=== PATIENT | female | born 1990 | race Caucasian/White ===

== ENCOUNTER 2016-07-08 12:05 | Emergency (ER) | payer BC ==
--- NOTE | 2016-07-08 12:29 | ER Document Report ---
ED Medical Screen (RME) - General Stated Complaint: VAGINAL BLEEDING Mode of Arrival: Ambulatory Information source: Patient Notes: Patient states that she is about 6 weeks . Patient reports vaginal bleeding that just started 45 minutes prior to arrival. Patient denies any urinary symptoms. I have greeted and performed a rapid initial assessment of this patient. A comprehensive ED assessment and evaluation of the patient, analysis of test results and completion of the medical decision making process will be conducted by additional ED providers. TRAVEL OUTSIDE OF THE [place] IN LAST 30 DAYS: No - Related Data Allergies/Adverse Reactions: No Known Allergies Allergy (Verified 07/08/16 12:28) Past Medical History - Social History Family history: Reviewed & Not Pertinent Pulmonary Medical History: Reports: Hx Asthma Psychiatric Medical History: Reports: Hx Bipolar Disorder - Immunizations Hx Diphtheria, Pertussis, Tetanus Vaccination: Yes Physical Exam - General General appearance: Appears well, Alert In distress: None Course - Re-evaluation Re-evalutation: 07/08/16 12:[address] Anand agrees with plan for ultrasound imaging.
--- NOTE | 2016-07-08 13:49 | ER Document Report ---
ED General - General Chief Complaint: Vag Bleeding, +preg <12wks Stated Complaint: VAGINAL BLEEDING Mode of Arrival: Ambulatory Information source: Patient Notes: Patient presents to the emergency department with complaints of vaginal bleeding this a.m. Patient is . She reports cough. She denies trauma. She denies other symptoms such as fever vomiting diarrhea. Denies abdominal pain, pain with void and vaginal discharge. Patient reports that she noticed some pink when she wiped earlier today. Patient has been to see her primary care provider and is taking vitamins. She is waiting for OB/ DISASTER RECOVERY CONSULTANT referral. TRAVEL OUTSIDE OF THE [place] IN LAST 30 DAYS: No - HPI Onset: This morning Onset/Duration: Sudden Quality of pain: No pain Severity: None Associated symptoms: Nonproductive cough Exacerbated by: Denies Relieved by: Denies Similar symptoms previously: No Recently seen / treated by doctor: Yes - preg confirmed - Related Data Allergies/Adverse Reactions: No Known Allergies Allergy (Verified 07/08/16 12:28) Past Medical History - General Information source: Patient Last Menstrual Period: 05/27/16 ~6 weeks - Social History Smoking Status: Former Smoker Chew tobacco use (# tins/day): No Frequency of alcohol use: None Drug Abuse: None Lives with: Family Family History: Reviewed & Not Pertinent Patient has suicidal ideation: No Patient has homicidal ideation: No Pulmonary Medical History: Reports: Hx Asthma Renal/ Medical History: Denies: Hx Peritoneal Dialysis Psychiatric Medical History: Reports: Hx Bipolar Disorder Surgical Hx: Negative - Immunizations Hx Diphtheria, Pertussis, Tetanus Vaccination: Yes Review of Systems - Review of Systems Notes: Review HPI for review of systems., All other systems negative Physical Exam - Vital signs Vitals: Temp Pulse Resp BP Pulse Ox 98.2 F 88 16 128/72 H 98 07/08/16 12:27 07/08/16 12:27 07/08/16 12:27 07/08/16 12:27 07/08/16 12:27 - Notes Notes: PHYSICAL EXAMINATION: GENERAL: Well-appearing and in no acute distress HEAD: Atraumatic, normocephalic. EYES: Pupils equal round extraocular movements intact, sclera anicteric, conjunctiva are normal. ENT: nares patent, . Moist mucous membranes. NECK: Normal range of motion, supple without lymphadenopathy LUNGS: CTAB and equal. No wheezes rales or rhonchi. HEART: Regular rate and rhythm without murmurs ABDOMEN: Soft, no tenderness. No guarding, no rebound BACK: Denies pain EXTREMITIES: Normal range of motion, no pitting edema. No cyanosis. NEUROLOGICAL: Cranial nerves grossly intact. Normal sensory/motor exams. PSYCH: Normal mood, normal affect. SKIN: Warm, Dry, normal turgor, no rashes or lesions noted Course - Re-evaluation Re-evalutation: 07/08/16 patient instructed on all results. Instructed on follow-up hCG level. She verbalized understanding to all - Vital Signs Vital signs: Temp Pulse Resp BP Pulse Ox 98.2 F 88 16 128/72 H 98 07/08/16 12:27 07/08/16 12:27 07/08/16 12:27 07/08/16 12:27 07/08/16 12:27 - Laboratory Result Diagrams: 07/08/16 13:56 07/08/16 13:56 Laboratory results interpreted by me: 07/08/16 07/08/16 13:56 13:56 WBC 11.5 H Glucose 66 L Beta HCG, Quant 78222.00 H - Diagnostic Test Radiology reviewed: Image reviewed, Reports reviewed - 5w IUP Discharge - Discharge Clinical Impression: elevated blood pressure reading Vaginal bleeding in Qualifiers: Trimester: first trimester Qualified Code(s): O46.91 - Antepartum hemorrhage, unspecified, first trimester Condition: Stable Disposition: HOME, SELF-CARE Instructions: Bleeding During Early ([facility]), ([facility]), Ob-[facility] Doctors Additional Instructions: *You have been evaluated for vaginal bleeding, *Your ultrasound showed a 5week 6 day intrauterine . Your HCG level was *Follow up on July 10 for a repeat hCG. Contact the culture nurse at [phone] for results at least two hours after the lab test. *Follow up with your CAR SALES CONSULTANT or the health department for recheck within one week *Avoid sexual intercourse until follow up *Return to ED for worsening condition, changes, needs Forms: Elevated Blood Pressure, Follow-Up Laboratory Testing
[2016-07-08 14:11] LABS: ABSOLUTE EOSINOPHILS # (AUTO) 0.2 10^3/uL (0.0-0.6); ABSOLUTE LYMPHOCYTES (AUTO) 2.5 10^3/uL (0.5-4.7); ABSOLUTE MONOCYTES (AUTO) 0.9 10^3/uL (0.1-1.4); ABSOLUTE NEUT (AUTO) 7.8 10^3/uL (1.7-8.2); BASOPHILS % (AUTO) 0.4 % (0-2); HEMATOCRIT 40.9 % (36.0-47.0); HEMOGLOBIN 14.2 g/dL (12.0-15.5); HGB HCT DIFFERENCE 1.7; LYMPHOCYTES % (AUTO) 21.7 % (13-45); MEAN CORPUSCULAR HEMOGLOBIN 31.1 pg (27.0-33.4); MEAN CORPUSCULAR HGB CONC 34.7 g/dL (32.0-36.0); MEAN CORPUSCULAR VOLUME 90 fl (80-97); MONOCYTES % (AUTO) 8.2 % (3-13); RED BLOOD COUNT 4.56 10^6/uL (3.72-5.28); RED CELL DISTRIBUTION WIDTH 12.9 % (11.5-14.0); SEGMENTED NEUTROPHILS % (AUTO) 67.7 % (42-78); WHITE BLOOD COUNT 11.5 10^3/uL (4.0-10.5)
[2016-07-08 14:27] LABS: ALANINE AMINOTRANSFERASE 21 U/L (9-52); ALBUMIN 4.4 g/dL (3.5-5.0); ALKALINE PHOSPHATASE 63 U/L (38-126); ANION GAP 10 (5-19); ASPARTATE AMINO TRANSFERASE 14 U/L (14-36); BILIRUBIN,TOTAL 0.3 mg/dL (0.2-1.3); BLOOD UREA NITROGEN 11 mg/dL (7-20); CARBON DIOXIDE 28 mmol/L (22-30); CHLORIDE 101 mmol/L (98-107); CREATININE RESULT 0.59 mg/dL (0.52-1.25); GLUCOSE 66 mg/dL (75-110); SODIUM 139.3 mmol/L (137-145); TOTAL PROTEIN 6.7 g/dL (6.3-8.2)
[2016-07-08 15:52] VITALS: BP 118/62
== END 2016-07-08 15:32 | disposition home or self-care (01) ==
LOC: ER 12:05
DX: O46.91 Antepartum hemorrhage, unspecified, first trimester (principal); R03.0 Elevated blood-pressure reading, without diagnosis of hypertension; Z3A.01 Less than 8 weeks gestation of pregnancy
CPT/HCPCS: 36415; 76817; 80053; 84702; 85025; 86900; 86901; 99284

== ENCOUNTER 2017-01-23 10:56 | Outpatient (CLI) | payer MEDICAID ==
--- NOTE | 2017-01-23 11:28 | Non Stress Test Report ---
Non Stress Test Datetime Report Generated by CPN: 01/23/2017 11:27 DEMOGRAPHIC EGA NST: 34.3 INDICATION Indication for Study: Polyhydramnios; Ordered by Provider VITAL SIGNS Temperature - NST: 98.2 Pulse - NST: 99 RESP - NST: 16 NBPSYS NST: 129 NBPDIA NST: 73 MONITORING Monitor Explained: Monitor Explained; Test Explained; Patient Verbalized Understanding Time on Monitor: 01/23/2017 11:08 Time off Monitor: 01/23/2017 11:28 NST Duration: 20 NST INTERVENTIONS NST Interventions: PO Hydration; Reposition Patient Physician Notified NST: DR NEILSEN REVIEWED STRIP BABY A: [id number] BABY A Movement : Present Contraction Frequency : x0 FHR Baseline : 135 Accelerations : 15X15 Decelerations : None Variability : Moderate 6-25bpm NST Review: Meets Criteria for Reactive NST NST Review and Verified By : BL ROULUND, RN NST Results: Reactive NST COMMENTS NST Comments: KICK COUNTS CARE NOTES GIVEN TO PT. NST REPORT Report Trigger: Send Report
== END 2017-01-23 11:40 | disposition home or self-care (01) ==
LOC: LC 10:56
PROVIDERS: ATTEND Specialist
PROC: 4A1HXCZ Monitoring of Products of Conception, Cardiac Rate, External Approach (ICD-10-PCS; principal; 2017-01-23)
DX: O40.3XX0 Polyhydramnios, third trimester, not applicable or unspecified (principal); Z3A.34 34 weeks gestation of pregnancy
CPT/HCPCS: 59025

== ENCOUNTER 2017-01-28 09:16 | Outpatient (CLI) | payer MEDICAID ==
--- NOTE | 2017-01-28 10:08 | Non Stress Test Report ---
Non Stress Test Datetime Report Generated by CPN: 01/28/2017 10:08 DEMOGRAPHIC EGA NST: 35.1 EGA NST: 35.1 INDICATION Indication for Study: Polyhydramnios Indication for Study: Ordered by Provider VITAL SIGNS Temperature - NST: 97.5 Pulse - NST: 81 RESP - NST: 16 NBPSYS NST: 120 NBPDIA NST: 69 MONITORING Monitor Explained: Monitor Explained; Test Explained; Patient Verbalized Understanding Monitor Explained: Monitor Explained; Test Explained; Patient Verbalized Understanding Time on Monitor: 01/28/2017 09:27 Time on Monitor: 01/28/2017 11:09 Time off Monitor: 01/28/2017 10:05 NST Duration: 38 NST INTERVENTIONS NST Interventions: PO Hydration; Reposition Patient NST Interventions: PO Hydration; Reposition Patient Physician Notified NST: H Kedar CNM BABY A: [id number] BABY A Movement : Present Contraction Frequency : x2 FHR Baseline : 125 Accelerations : 15X15 Decelerations : None Variability : Moderate 6-25bpm NST Review: Meets Criteria for Reactive NST NST Review and Verified By : D Bellavance RNC NST Results: Reactive NST REPORT Report Trigger: Send Report
== END 2017-01-28 10:05 | disposition home or self-care (01) ==
LOC: LC 09:16
PROVIDERS: ATTEND Obstetrics & Gynecology
PROC: 4A1HXCZ Monitoring of Products of Conception, Cardiac Rate, External Approach (ICD-10-PCS; principal; 2017-01-28)
DX: O40.3XX0 Polyhydramnios, third trimester, not applicable or unspecified (principal); Z3A.35 35 weeks gestation of pregnancy
CPT/HCPCS: 59025

== ENCOUNTER 2017-02-04 02:14 | Outpatient (CLI) | payer MEDICAID ==
[2017-02-04] MEDS ORDERED: BUPIVACAINE HCL 0.25 % INJ/PF (2.5 MG/1 ML) 30 ML VIAL INFIL ONE (02:26)
[2017-02-04] MEDS ORDERED: RINGERS SOLUTION,LACTATED 1,000 ML IV PRN (02:26)
[2017-02-04] MEDS ORDERED: FENTANYL/BUPIVACAINE/NS/PF 200 MCG/100 ML RTUINJ EPI PRN (02:26)
[2017-02-04] MEDS ORDERED: BENZOIN/ALOE VERA/STORAX/TOLU TINCTURE 60 ML TP PRN (02:26)
[2017-02-04] MEDS ORDERED: MORPHINE SULFATE 10 MG/ML INJ ONE (02:43)
[2017-02-04 03:01] LABS: AMORPHOUS SEDIMENT,URINE TRACE /HPF; APPEARANCE,URINE CLOUDY; BILIRUBIN,URINE NEGATIVE (NEGATIVE); GLUCOSE, URINE NEGATIVE (NEGATIVE); KETONES,URINE 20 mg/dL (NEGATIVE); LEUKOCYTE ESTERASE,URINE LARGE (NEGATIVE); NITRITE,URINE NEGATIVE (NEGATIVE); PROTEIN,URINE 30 mg/dL (NEGATIVE); URINE SPECIFIC GRAVITY 1.006; UROBILINOGEN,URINE NEGATIVE mg/dL (<2.0)
[2017-02-04 03:36] LABS: URINE BARBITURATES SCREEN NEGATIVE; URINE METHADONE SCREEN NEGATIVE; URINE OPIATES LOW NEGATIVE; URINE PHENCYCLIDINE SCREEN NEGATIVE
[2017-02-04] MEDS ORDERED: HYDROXYZINE PAMOATE 50 MG CAPSULE ONE (04:03)
[2017-02-05] MEDS ORDERED: MORPHINE SULFATE 10 MG/ML INJ ONE (12:32)
[2017-02-05] MEDS ORDERED: PROMETHAZINE HCL INJ 25 MG/1 ML VIAL ONE (12:32)
[2017-02-05] MEDS ORDERED: AMPICILLIN SOD/SULBACTAM 3 GM VIAL ONE (23:45)
== END 2017-02-04 04:14 | disposition home or self-care (01) ==
LOC: LC 02:14
PROVIDERS: ATTEND Obstetrics & Gynecology
PROC: 4A1HXCZ Monitoring of Products of Conception, Cardiac Rate, External Approach (ICD-10-PCS; principal; 2017-02-04)
DX: O26.53 Maternal hypotension syndrome, third trimester (principal); Z3A.36 36 weeks gestation of pregnancy
CPT/HCPCS: 59025; 81001; 80307; J3490; J2270

== ENCOUNTER 2017-02-04 10:35 | Outpatient (CLI) | payer MEDICAID ==
--- NOTE | 2017-02-04 10:48 | Non Stress Test Report ---
Non Stress Test Datetime Report Generated by CPN: 02/04/2017 10:48 DEMOGRAPHIC Test Number: 4 EGA NST: 36.1 INDICATION Indication for Study (NST) Other: Labor Check MONITORING Monitor Explained: Monitor Explained; Test Explained; Patient Verbalized Understanding Time on Monitor: 02/04/2017 02:20 Time off Monitor: 02/04/2017 04:00 NST Duration: 100 NST INTERVENTIONS NST Interventions: PO Hydration; Reposition Patient; Vibroacoustic Stim Physician Notified NST: Dr Oconnor BABY A: [id number] BABY A Movement : Present Contraction Frequency : irritability FHR Baseline : 145 Accelerations : 10X10 Decelerations : None Variability : Moderate 6-25bpm NST Review: Does Not Meet Criteria for Reactive NST NST Review: Does Not Meet Criteria for Reactive NST NST Review and Verified By : Rigo David RN NST Results: Non-Reactive NST Results: Non-Reactive NST COMMENTS NST Comments: Dr. Oconnor reviewed tracing. States that because pt had reactive NST on 9/3, he is okay with pt being discharged at this time. NST REPORT Report Trigger: Send Report
[2017-02-04] MEDS ORDERED: RINGERS SOLUTION,LACTATED 1,000 ML IV PRN (10:50)
[2017-02-04 11:10] LABS: APPEARANCE,URINE CLEAR; BILIRUBIN,URINE NEGATIVE (NEGATIVE); GLUCOSE, URINE NEGATIVE (NEGATIVE); KETONES,URINE 20 mg/dL (NEGATIVE); LEUKOCYTE ESTERASE,URINE MODERATE (NEGATIVE); NITRITE,URINE NEGATIVE (NEGATIVE); PROTEIN,URINE NEGATIVE (NEGATIVE); URINE SPECIFIC GRAVITY 1.005; UROBILINOGEN,URINE NEGATIVE mg/dL (<2.0)
[2017-02-04 11:22] LABS: URINE BARBITURATES SCREEN NEGATIVE; URINE METHADONE SCREEN NEGATIVE; URINE OPIATES LOW NEGATIVE; URINE PHENCYCLIDINE SCREEN NEGATIVE
--- NOTE | 2017-02-04 12:42 | RADIOLOGY REPORT (SQ) ---
EXAM DESCRIPTION: U/S PROFILE W/O STRESS COMPLETED DATE/TIME: 02/04/2017 12:29 pm REASON FOR STUDY: Non-reactive NST at 36.1 weeks EGA COMPARISON: None. TECHNIQUE: Limited dover-scale realtime and static images of the fetus to measure specified parameter s. LIMITATIONS: Exam terminated early per request of patient. FINDINGS: HEART RATE: 144 beats per minute. NEEMA: 14.2 cm. POSTURE AND TONE: 2 points. MOVEMENT: 2 points. BREATHING MOVEMENT: 0 points. QUALITATIVE NEEMA: 2 points. OTHER: No other significant finding. IMPRESSION: BIOPHYSICAL PROFILE: 11/08. Trimester of : Third - 28 weeks to delivery COMMENT: BREATHING MOVEMENTS: 2 POINTS: PRESENT 0 POINTS: ABSENT MOTION: 2 POINTS: PRESENT 0 POINTS: ABSENT TONE: 2 POINTS: PRESENT 0 POINTS: ABSENT AMNIOTIC FLUID VOLUME: 2 POINTS: LARGEST POCKET GREATER THAN 2 CM DEPTH. 0 POINTS: NO POCKET OF 2 CM. TECHNICAL DOCUMENTATION: JOB ID: [id number] [employer]- All Rights Reserved
[2017-02-04] MEDS ORDERED: HYDROXYZINE PAMOATE 50 MG CAPSULE PO ONE (13:17)
[2017-02-04] MEDS ORDERED: HYDROXYZINE PAMOATE 50 MG CAPSULE ONE (13:42)
--- NOTE | 2017-02-04 14:19 | Non Stress Test Report ---
Non Stress Test Datetime Report Generated by CPN: 02/04/2017 14:18 DEMOGRAPHIC EGA NST: 36.1 INDICATION Indication for Study: Other Indication for Study (NST) Other: False Labor MONITORING Monitor Explained: Monitor Explained; Test Explained; Patient Verbalized Understanding Time on Monitor: 02/04/2017 12:30 Time off Monitor: 02/04/2017 13:33 NST Duration: 63 NST INTERVENTIONS NST Interventions: PO Hydration; IV Fluids; Reposition Patient; For Biophysical Profile Physician Notified NST: Burt Rivero Strip reviewed by provider BABY A Movement : Present Contraction Frequency : Irregular FHR Baseline : 145 Accelerations : 15X15 Decelerations : None Variability : Moderate 6-25bpm NST Review: Meets Criteria for Reactive NST NST Review and Verified By : SRIKANTH LOZA Results: Reactive NST COMMENTS NST Comments: BPP 6/8 NST REPORT Report Trigger: Send Report
== END 2017-02-04 13:57 | disposition home or self-care (01) ==
LOC: LC 10:35
PROVIDERS: ATTEND Student in an Organized Health Care Education/Training Program
DX: O47.03 False labor before 37 completed weeks of gestation, third trimester (principal); Z3A.36 36 weeks gestation of pregnancy
CPT/HCPCS: 59025; 81001; 80307; 76819; J3490; J2270

== ENCOUNTER 2017-02-05 09:10 | Inpatient (IN) | payer MEDICAID ==
[2017-02-05 10:09] LABS: APPEARANCE,URINE CLEAR; BILIRUBIN,URINE NEGATIVE (NEGATIVE); GLUCOSE, URINE NEGATIVE (NEGATIVE); KETONES,URINE 20 mg/dL (NEGATIVE); LEUKOCYTE ESTERASE,URINE TRACE (NEGATIVE); NITRITE,URINE NEGATIVE (NEGATIVE); PROTEIN,URINE NEGATIVE (NEGATIVE); URINE SPECIFIC GRAVITY 1.004
[2017-02-05 10:25] LABS: URINE BARBITURATES SCREEN NEGATIVE; URINE METHADONE SCREEN NEGATIVE; URINE OPIATES LOW NEGATIVE; URINE PHENCYCLIDINE SCREEN NEGATIVE
[2017-02-05] MEDS ORDERED: HYDROXYZINE PAMOATE 50 MG CAPSULE PO ONE (11:01)
[2017-02-05] MEDS ORDERED: DEXTROSE 5%-LACTATED RINGERS 1,000 ML IV PRN (11:01)
[2017-02-05] MEDS ORDERED: HYDROXYZINE PAMOATE 50 MG CAPSULE ONE (11:08)
--- NOTE | 2017-02-05 12:14 | Non Stress Test Report ---
Non Stress Test Datetime Report Generated by CPN: 02/05/2017 12:14 DEMOGRAPHIC EGA NST: 36.2 INDICATION Indication for Study: Polyhydramnios; Ordered by Provider VITAL SIGNS Temperature - NST: 97.4 MONITORING Monitor Explained: Monitor Explained; Test Explained; Patient Verbalized Understanding Time on Monitor: 02/05/2017 11:50 Time off Monitor: 02/05/2017 12:10 NST Duration: 20 NST INTERVENTIONS NST Interventions: PO Hydration BABY A: [id number] BABY A Movement : Present Contraction Frequency : Irregular FHR Baseline : 135 Accelerations : 15X15 Decelerations : None Variability : Moderate 6-25bpm NST Review: Meets Criteria for Reactive NST NST Review and Verified By : Anais Cordero NST Results: Reactive NST REPORT Report Trigger: Send Report
[2017-02-05] MEDS ORDERED: MORPHINE SULFATE 10 MG/ML INJ IM ONE (12:22)
[2017-02-05] MEDS ORDERED: PROMETHAZINE HCL INJ 25 MG/1 ML VIAL IM PRN (12:23)
[2017-02-05] MEDS ORDERED: PROMETHAZINE HCL INJ 25 MG/1 ML VIAL ONE (12:38)
[2017-02-05] MEDS ORDERED: MORPHINE SULFATE 10 MG/ML INJ ONE (12:39)
[2017-02-05] MEDS ORDERED: PROMETHAZINE HCL INJ 25 MG/1 ML VIAL IV ONE (12:45)
--- NOTE | 2017-02-05 14:13 | RADIOLOGY REPORT (SQ) ---
EXAM DESCRIPTION: U/S OB LIMITED COMPLETED DATE/TIME: 02/05/2017 2:00 pm REASON FOR STUDY: iup 36+3 vaginal leaking, NEEMA please COMPARISON: 02/04/2017 TECHNIQUE: Limited transabdominal grayscale ultrasound for evaluation of specific requested obstetri vicki parameters. LIMITATIONS: None. FINDINGS: NEEMA: 14.6 cm. FHR: 160 beats per minute. PRESENTATION: Cephalic. OTHER: No other significant findings. IMPRESSION: LIMITED OBSTETRICAL ULTRASOUND WITH MEASURED PARAMETERS DELINEATED ABOVE. Trimester of : Third trimester - 28 weeks to delivery. TECHNICAL DOCUMENTATION: JOB ID: [id number] [employer]- All Rights Reserved
[2017-02-05] MEDS ORDERED: MISOPROSTOL 0.2 MG TABLET ONE (14:52)
[2017-02-05] MEDS ORDERED: LIDOCAINE 1% INJ-PF (10 MG/ML) 30 ML SDV ONE (14:52)
[2017-02-05] MEDS ORDERED: OXYTOCIN/NORMAL SALINE 20 UNIT/1,000 ML RTUINJ ONE (14:52)
[2017-02-05] MEDS ORDERED: PENICILLIN G-K 5 MILLION UNIT VIAL ONE ×2 (14:54→18:03)
[2017-02-05] MEDS ORDERED: PENICILLIN G POTASSIUM 5,000,000 UNIT in DEXTROSE 5%-WATER 100 ML IV ONE (14:57)
[2017-02-05 15:01] LABS: ABSOLUTE BASOPHILS # (AUTO) 0.1 10^3/uL (0.0-0.2); ABSOLUTE LYMPHOCYTES (AUTO) 1.5 10^3/uL (0.5-4.7); ABSOLUTE MONOCYTES (AUTO) 1.5 10^3/uL (0.1-1.4); ABSOLUTE NEUT (AUTO) 16.8 10^3/uL (1.7-8.2); BASOPHILS % (AUTO) 0.4 % (0-2); EOSINOPHILS % (AUTO) 0.1 % (0-6); HEMATOCRIT 35.2 % (36.0-47.0); HEMOGLOBIN 12.4 g/dL (12.0-15.5); LYMPHOCYTES % (AUTO) 7.3 % (13-45); MEAN CORPUSCULAR HEMOGLOBIN 31.5 pg (27.0-33.4); MEAN CORPUSCULAR HGB CONC 35.1 g/dL (32.0-36.0); MEAN CORPUSCULAR VOLUME 90 fl (80-97); MONOCYTES % (AUTO) 7.7 % (3-13); RED BLOOD COUNT 3.93 10^6/uL (3.72-5.28); RED CELL DISTRIBUTION WIDTH 13.6 % (11.5-14.0); SEGMENTED NEUTROPHILS % (AUTO) 84.5 % (42-78); WHITE BLOOD COUNT 19.9 10^3/uL (4.0-10.5)
[2017-02-05 15:16] LABS: ALANINE AMINOTRANSFERASE 28 U/L (9-52); ALBUMIN 3.5 g/dL (3.5-5.0); ALKALINE PHOSPHATASE 155 U/L (38-126); ANION GAP 11 (5-19); ASPARTATE AMINO TRANSFERASE 17 U/L (14-36); BILIRUBIN,DIRECT 0.5 mg/dL (0.0-0.4); BILIRUBIN,TOTAL 0.8 mg/dL (0.2-1.3); BLOOD UREA NITROGEN 3 mg/dL (7-20); CALCIUM 9.3 mg/dL (8.4-10.2); CARBON DIOXIDE 21 mmol/L (22-30); CHLORIDE 101 mmol/L (98-107); GLUCOSE 83 mg/dL (75-110); LDH 306 U/L (313-618); POTASSIUM 3.6 mmol/L (3.6-5.0); TOTAL PROTEIN 6.4 g/dL (6.3-8.2); URIC ACID 6.5 mg/dL (2.5-6.2)
[2017-02-05] MEDS: RINGERS SOLUTION,LACTATED 1,000 ML IV PRN ×3 (15:42→23:53)
[2017-02-05] MEDS ORDERED: FENTANYL/BUPIVACAINE/NS/PF 200 MCG/100 ML RTUINJ EPI ONE ×2 (17:48→18:49)
[2017-02-05] MEDS ORDERED: EPHEDRINE SULFATE INJ 50 MG/1 ML AMPULE ONE (17:48)
[2017-02-05] MEDS ORDERED: BUPIVACAINE HCL 0.25 % INJ/PF (2.5 MG/1 ML) 30 ML VIAL ONE (17:49)
[2017-02-05] MEDS: PENICILLIN G-K 5 MILLION UNIT VIAL IV SCH ×2 (18:51→23:40)
[2017-02-05] MEDS ORDERED: PENICILLIN G POTASSIUM 2,500,000 UNIT in DEXTROSE 5%-WATER 50 ML IV SCH (18:59)
[2017-02-05] MEDS ORDERED: ZOLPIDEM TARTRATE 5 MG TABLET PO PRN (23:09)
[2017-02-05] MEDS ORDERED: BENZOCAINE/MENTHOL AEROSOL SPRAY 56 ML TOP PRN (23:09)
[2017-02-05] MEDS ORDERED: MEASLES,MUMPS&RUBELLA VACC/PF 0.5 ML VIAL SUBCUT PRN (23:09)
[2017-02-05] MEDS ORDERED: ACETAMINOPHEN WITH CODEINE #3 TABLET PO PRN (23:09)
[2017-02-05] MEDS ORDERED: OXYTOCIN/NORMAL SALINE 20 UNIT/1,000 ML RTUINJ IV PRN (23:09)
[2017-02-05] MEDS ORDERED: DIPH/PERTUSS(ACELL)/TETANUS VAC/PF 0.5 ML SYR (>=10YO) IM PRN (23:09)
[2017-02-05] MEDS ORDERED: DIBUCAINE 1% OINTMENT 28 GM TP PRN (23:09)
[2017-02-05] MEDS ORDERED: AMPICILLIN SOD/SULBACTAM 3 GM VIAL IV SCH (23:15)
[2017-02-05] MEDS ORDERED: AMPICILLIN SODIUM/SULBACTAM NA 3 GM in NORMAL SALINE 100 ML IV SCH (23:45)
[2017-02-05] MEDS: AMPICILLIN SOD/SULBACTAM 3 GM VIAL IV PRN (23:54)
--- NOTE | 2017-02-06 00:33 | Delivery Summary ---
Del Sum A-C Datetime Report Generated by CPN: 02/06/2017 00:32 DELIVERY PERSONNEL DELIVERY PERSONNEL: [id number] Delivery Doctor:: Maricel Acharya MD Labor and Delivery Nurse:: Denise Thomas RNdirector community center Nurse:: Sheron David RN Case Work Aide:: Cathy Franco RN Industrial Hire Sales Assistant/SYSTEMS SOFTWARE DEVELOPER: Tatianna Green, ST MATERNAL INFORMATION Delivery Anesthesia: Epidural Medications After Delivery: Pitocin Drip 20 Units/1000ml NSS; Other-Please Comment Meds After Delivery Comment: Cytotec 1000 mcg SD Estimated Blood Loss (ml): 200 Maternal Complications: None; Premature Rupture of Membranes LABOR SUMMARY EDC: 03/03/2017 00:00 No. Babies in Womb: 1 Attempted: No Labor Anesthesia: Epidural LABOR INFORMATION Reason for Induction: Premature Rupture of Membranes Onset of Labor: 02/05/2017 18:40 Complete Dilatation: 02/05/2017 21:41 Oxytocin: Induction Group B Beta Strep: Unknown Antibiotics # of Doses: 2 Antibiotics Time of Last Dose: 1851 Name of Antibiotic Given: Penicillin Steroids Given: None Reason Steroids Not Administered: Not Applicable MEMBRANES Membranes Rupture Method: Spontaneous Rupture of Membranes: 02/02/2017 19:30 Length of Rupture (hr): 75.40 Amniotic Fluid Color: Clear Amniotic Fluid Amount: Copious Amniotic Fluid Odor: None STAGES OF LABOR Stage 1 hr: 3 Stage 1 min: 1 Stage 2 hr: 1 Stage 2 min: 13 Stage 3 hr: 1 Stage 3 min: 5 Total Time in Labor hr: 5 Total Time in Labor min: 19 VAGINAL DELIVERY Episiotomy: None Laceration Extension: N/A Laceration Type: None Laceration Repair: Not Applicable Sponge Count Correct: N/A Sharps Count Correct: N/A CSECTION DELIVERY Primary Indication: N/A Secondary Indication: N/A CSection Incidence: N/A Labor: N/A Elective: N/A CSection Incision: N/A BABY A INFORMATION Delivery Date/Time: 02/05/2017 22:54 Method of Delivery: Vaginal Born in Route : No : N/A Forceps: N/A Vacuum Extraction: N/A Shoulder Dystocia : No PRESENTATION/POSITION BABY A Presentation: Cephalic Cephalic Presentation: Vertex Vertex Position: Right Occipital Anterior Breech Presentation: N/A PLACENTA INFORMATION BABY A Placenta Delivery Time : 02/05/2017 23:59 Placenta Method of Delivery: Spontaneous Placenta Status: Delivered SCORES BABY A Heart Rate 1 min: >100 bpm Resp Effort 1 min: Slow, Irregular Reflex Irritability 1 min: Grimace Muscle Tone 1 min: Flaccid Color 1 min: Body [place], Extremities Blue Resuscitation Effort 1 min: Tactile Stimulation SCORE 1 MIN: 5 Heart Rate 5 min: >100 bpm Resp Effort 5 min: Slow, Irregular Reflex Irritability 5 min: Grimace Muscle Tone 5 min: Some Flexion of Extremities Color 5 min: Body [place], Extremities Blue Resuscitation Effort 5 min: Tactile Stimulation; Oxygen; PPV/NCPAP SCORE 5 MIN: 6 Heart Rate 10 min: >100 bpm Resp Effort 10 min: Slow, Irregular Reflex Irritability 10 min: Cough or Sneeze or Pulls Away Muscle Tone 10 min: Active Motion Color 10 min: Body [place], Extremities Blue SCORE 10 MIN: 8 INFORMATION BABY A Gestational Age at Delivery: 36.2 Gestational Status: Late - 34- 36.6 Weeks Infant Outcome : Liveborn Infant Condition : Stable Infant Sex: Female IDENTIFICATION BABY A Infant Verification Date/Time: 02/05/2017 22:59 ID Band Number: [id number] Mother's Name Verified: Yes RN Verifying : R [place], C Additional Verifying Personnel: [facility], RN WEIGHT/LENGTH BABY A Birthweight (gm): 2980 Weight (lb): 6 Weight (oz): 9 Length (in): 19.50 Length (cm): 49.53 CORD INFORMATION BABY A No. Cord Vessels: 3 Nuchal Cord : N/A Cord Blood Taken: Yes-For Eval (Mom's Blood Type - or O+) Infant Suction: Mouth; Nose; Pharynx ASSESSMENT BABY A Infant Complications: Meconium; Other Infant Complications- Other: Terminal mec Physical Findings at Delivery: Molding of the Head Infant Respirations: Intercostal Retractions; Sternal Retractions; Tachypnea Skin to Skin: No Product Safety Tester/ALS Called : No Care By: SRIKANTH Herrera RN Transferred To: [facility] BABY B INFORMATION : N/A SIGNATURES Signature: with User ID: [email or web address]
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
[2017-02-06] MEDS ORDERED: ACETAMINOPHEN 325 MG TABLET PO PRN (02:47)
[2017-02-06 05:58] LABS: CHLAM PCR NOT DETECTED (NOT DETECT)
[2017-02-06] MEDS: AMPICILLIN SOD/SULBACTAM 3 GM VIAL IV PRN (06:10)
[2017-02-06] MEDS: IBUPROFEN 800 MG TABLET PO SCH ×3 (06:12→21:10)
[2017-02-06 07:06] LABS: HEMATOCRIT 30.2 % (36.0-47.0); HEMOGLOBIN 10.4 g/dL (12.0-15.5); MEAN CORPUSCULAR HEMOGLOBIN 31.2 pg (27.0-33.4); MEAN CORPUSCULAR HGB CONC 34.5 g/dL (32.0-36.0); MEAN CORPUSCULAR VOLUME 90 fl (80-97); RED BLOOD COUNT 3.34 10^6/uL (3.72-5.28); RED CELL DISTRIBUTION WIDTH 13.3 % (11.5-14.0); WHITE BLOOD COUNT 18.8 10^3/uL (4.0-10.5)
[2017-02-06] MEDS: DOCUSATE SODIUM 100 MG CAPSULE PO SCH ×2 (09:07→18:46)
[2017-02-06] MEDS: FERROUS SULFATE 325 MG TABLET PO SCH ×2 (09:07→18:46)
[2017-02-06] MEDS: SENNOSIDES/DOCUSATE 8.6-50 MG 1 EACH TABLET PO SCH (09:07)
[2017-02-06] MEDS: PRENATAL VITAMIN W-O CA NO5/FE FUMARATE/FA CAPSULE PO SCH (09:07)
[2017-02-06 09:43] LABS: AMNISURE (ROM) NEGATIVE (NEGATIVE)
--- NOTE | 2017-02-06 10:52 | PDOC PROGRESS REPORT ---
Subjective-OB Subjective: Post Delivery Day: 26 year old. Denies any needs at this time PROM at 36.2 wega chorio- on abx heplock in place/ no redness or tenderness noted pt well reports increased vaginal bleeding fundus firm normal bleeding precautions reviewed anticipate d/c tomorrow Physical Exam (OB) Vital Signs: Temp Pulse Resp BP Pulse Ox 98.1 F 100 18 135/89 H 99 02/06/17 08:17 02/06/17 08:17 02/06/17 08:17 02/06/17 08:17 02/06/17 08:17 Intake & Output 02/05/17 02/06/17 02/07/17 06:59 06:59 06:59 Intake Total 400 Balance 400 Weight 88.2 kg - Lochia Lochia Amount: Scant < 10 ml Lochia Color: Rubra/Red - Abdomen Description: Tender, Soft Hernia Present: No Fundal Description: Firm, Midline Fundal Height: u/u - u/2 Objective-Diagnostic Laboratory: 02/06/17 06:51 02/05/17 14:44 02/05/17 02/05/17 02/05/17 14:44 14:44 14:44 WBC 19.9 H RBC 3.93 Hgb 12.4 Hct 35.2 L MCV 90 MCH 31.5 MCHC 35.1 RDW 13.6 Plt Count 281 Seg Neutrophils % 84.5 H Lymphocytes % 7.3 L Monocytes % 7.7 Eosinophils % 0.1 Basophils % 0.4 Absolute Neutrophils 16.8 H Absolute Lymphocytes 1.5 Absolute Monocytes 1.5 H Absolute Eosinophils 0.0 Absolute Basophils 0.1 Sodium 133.0 L Potassium 3.6 Chloride 101 Carbon Dioxide 21 L Anion Gap 11 BUN 3 L Creatinine 0.50 L Est GFR ( Amer) > 60 Est GFR (Non-Af Amer) > 60 Glucose 83 Uric Acid 6.5 H Calcium 9.3 Total Bilirubin 0.8 AST 17 ALT 28 Alkaline Phosphatase 155 H Total Protein 6.4 Albumin 3.5 Blood Type O POSITIVE Antibody Screen NEGATIVE 02/06/17 06:51 WBC 18.8 H RBC 3.34 L Hgb 10.4 L Hct 30.2 L MCV 90 MCH 31.2 MCHC 34.5 RDW 13.3 Plt Count 258 Seg Neutrophils % Lymphocytes % Monocytes % Eosinophils % Basophils % Absolute Neutrophils Absolute Lymphocytes Absolute Monocytes Absolute Eosinophils Absolute Basophils Sodium Potassium Chloride Carbon Dioxide Anion Gap BUN Creatinine Est GFR ( Amer) Est GFR (Non-Af Amer) Glucose Uric Acid Calcium Total Bilirubin AST ALT Alkaline Phosphatase Total Protein Albumin Blood Type Antibody Screen
[2017-02-06] MEDS: ACETAMINOPHEN WITH CODEINE #3 TABLET PO PRN ×2 (11:13→16:34)
[2017-02-06] MEDS ORDERED: AMPICILLIN SODIUM/SULBACTAM NA 3 GM in NORMAL SALINE 100 ML IV ONE (15:00)
[2017-02-07] MEDS: IBUPROFEN 800 MG TABLET PO SCH ×2 (05:18→13:32)
[2017-02-07] MEDS: ACETAMINOPHEN WITH CODEINE #3 TABLET PO PRN ×3 (05:56→17:51)
[2017-02-07 08:30] VITALS: BP 124/69
--- NOTE | 2017-02-07 09:24 | PDOC DISCHARGE SUMMARY ---
Final Diagnosis Discharge Date: 02/07/17 - Final Diagnosis (1) PROM (premature rupture of membranes) Is this a current diagnosis for this admission?: Yes (2) History of depression Is this a current diagnosis for this admission?: Yes (3) (spontaneous vaginal delivery) Is this a current diagnosis for this admission?: Yes Discharge Data - Discharge Medication Home Medications: Pnv95/Ferrous Fumarate/FA [ Formula Tablet] 1 tab PO DAILY 01/23/17 Calcium Carbonate [Tums Chewable 500 mg Tab.chew] 500 mg PO MEALSHS 02/04/17 Docusate Sodium [Colace 100 mg Capsule] 100 mg PO BID #30 capsule 02/07/17 Ferrous Sulfate [Feosol 325 mg Tablet] 325 mg PO BID #30 tablet 02/07/17 Ibuprofen [Motrin 800 mg Tablet] 800 mg PO Q8 #30 tablet 02/07/17 Gestational Age: 36.2 Reason(s) for Admission: Onset of Labor Procedures: NST Intrapartum Procedure(s): Spontaneous Vaginal Delivery - Data Baby 1 Female at 1 minute: 5 at 5 minutes: 6 at 10 minutes: 8 Weight: 2980 kg Home with Mother: Yes Complications: No - Diagnosis Test Laboratory: Temp Pulse Resp BP Pulse Ox 97.9 F 71 16 124/69 100 02/07/17 07:29 02/07/17 07:29 02/07/17 07:29 02/07/17 07:29 02/07/17 07:29 02/05/17 02/05/17 02/06/17 09:50 14:44 06:51 RBC 3.93 3.34 L Hgb 12.4 10.4 L Hct 35.2 L 30.2 L Urine Opiates Screen NEGATIVE - Discharge information/Instructions Discharge Activity: Activity As Tolerated, Pelvic Rest, No tub bath Discharge Diet: Regular Disposition: HOME, SELF-CARE Follow [facility]: [facility] in: 1, Weeks
[2017-02-07] MEDS: PRENATAL VITAMIN W-O CA NO5/FE FUMARATE/FA CAPSULE PO SCH (09:37)
[2017-02-07] MEDS: SENNOSIDES/DOCUSATE 8.6-50 MG 1 EACH TABLET PO SCH (09:37)
[2017-02-07] MEDS: FERROUS SULFATE 325 MG TABLET PO SCH ×2 (09:37→17:51)
[2017-02-07] MEDS: DOCUSATE SODIUM 100 MG CAPSULE PO SCH ×2 (09:37→17:51)
== END 2017-02-07 19:04 | disposition home or self-care (01) | DRG 775 ==
LOC: LC 09:10 → LR 14:52 → 2S 02-06 01:35
PROVIDERS: ADMIT Obstetrics & Gynecology; ATTEND Obstetrics & Gynecology
PROC: 10E0XZZ Delivery of Products of Conception, External Approach (ICD-10-PCS; principal; 2017-02-05)
PROC: 3E033VJ Introduction of Other Hormone into Peripheral Vein, Percutaneous Approach (ICD-10-PCS; 2017-02-05)
PROC: 4A1HXCZ Monitoring of Products of Conception, Cardiac Rate, External Approach (ICD-10-PCS; 2017-02-05)
DX: O42.113 Preterm premature rupture of membranes, onset of labor more than 24 hours following rupture, third trimester (principal); O41.1230 Chorioamnionitis, third trimester, not applicable or unspecified; O40.3XX0 Polyhydramnios, third trimester, not applicable or unspecified; O99.513 Diseases of the respiratory system complicating pregnancy, third trimester; J45.909 Unspecified asthma, uncomplicated; O99.344 Other mental disorders complicating childbirth; F31.9 Bipolar disorder, unspecified; F90.9 Attention-deficit hyperactivity disorder, unspecified type; Z87.891 Personal history of nicotine dependence; Z3A.36 36 weeks gestation of pregnancy; Z37.0 Single live birth
CPT/HCPCS: 36415; 76815; 80053; 80307; 81001; 83615; 84112; 84550; 85025; 85027; 86850; 86900; 86901; 87491; 87591; 90707; 94760; G0480; J0295; J2270; J2540; J2550; J2590; J3490; Q0114